=== PATIENT | male | born 1950 | race African-American/Black ===

== ENCOUNTER 2021-10-04 10:48 | Outpatient (CLI) | payer MEDICARE | END 2021-10-04 10:49 | disposition home or self-care (01) | LOC: CSHEKG 10:48 | PROVIDERS: ATTEND Internal Medicine Hematology & Oncology | DX: R00.9 Unspecified abnormalities of heart beat (principal) | CPT/HCPCS: 93005; 93010 ==

== ENCOUNTER 2021-10-24 07:52 | Outpatient (CLI) | payer MEDICARE | END 2021-10-24 07:53 | disposition home or self-care (01) | LOC: CSHCT 07:52 | PROVIDERS: ATTEND Internal Medicine Hematology & Oncology | DX: Z85.528 Personal history of other malignant neoplasm of kidney (principal); K68.9 Other disorders of retroperitoneum; Z90.5 Acquired absence of kidney; Z90.49 Acquired absence of other specified parts of digestive tract; I25.10 Atherosclerotic heart disease of native coronary artery without angina pectoris; I25.84 Coronary atherosclerosis due to calcified coronary lesion | CPT/HCPCS: 71260; 74177; 82565 ==

== ENCOUNTER 2023-06-18 20:32 | Emergency (ER) | payer MEDICARE ==
[2023-06-18] MEDS ORDERED: Calcium Gluc 4.6 MEQ/10 ML (100 MG/ML) ONE (21:16)
[2023-06-18 21:36] LABS: ALT (SGPT) 14 U/L (8-55); AST (SGOT) 21 U/L (5-34); Albumin 3.4 g/dL (3.4-4.8); Alkaline Phosphatase 55 U/L (40-110); Anion Gap 20 mmol/L (10-20); BUN (Urea Nitrogen) 73 mg/dL (8.4-25.7); Bilirubin, Total 0.5 mg/dL (0.2-1.2); Calc. Creatinine Clearance 0 mL/min (70-130); Calcium 8.6 mg/dL (7.8-10.44); Carbon Dioxide 11 mmol/L (23-31); Chloride 115 mmol/L (98-107); Estimated GFR 12; Globulin 3.1 g/dL (2.4-3.5); Glucose 163 mg/dL (83-110); Magnesium 1.6 mg/dL (1.6-2.6); Protein, Total 6.5 g/dL (5.8-8.1); Sodium 138 mmol/L (136-145)
[2023-06-18 21:41] LABS: #Monocytes 0.9 10x3/uL (0.0-1.1); #Neutrophils 6.5 10x3/uL (1.5-8.4); %Basophils 0.1 % (0.0-2.0); %Lymphocytes 16.6 % (18.0-47.0); %Monocytes 10.5 % (0.0-10.0); %Neutrophils 72.6 % (40.0-75.0); Hematocrit 42.8 % (38.8-50.0); Mean Corpuscular HGB CONC 32.7 g/dL (32.0-36.0); Mean Corpuscular Hemoglobin 31.7 pg (27.0-33.0); Mean Corpuscular Volume 96.8 fl (81.2-95.1); Mean Platelet Volume 12.6 fl (7.4-10.4); Platelet Count 87 10x3/uL (150-450); RBC Distribution Width 14.1 % (11.5-14.5); Red Blood Cell (RBC) Count 4.42 10x6/uL (4.32-5.72); White Blood Cell (WBC) Count 8.9 10x3/uL (3.5-10.5)
[2023-06-18 21:43] LABS: Troponin I 0.019 ng/mL (< 0.028)
[2023-06-18] MEDS ORDERED: Sodium Bicarb 50 MEQ/50 ML Abboject 8.4% SYRINGE ONE (21:50)
[2023-06-18] MEDS ORDERED: Calcium Chloride 1 GM/10 ML Abboject SYRINGE ONE (21:50)
[2023-06-18] MEDS ORDERED: Insulin Regular 300 UNITS/3 ML VIAL ONE (21:50)
[2023-06-18] MEDS ORDERED: Dextrose 50% Abboject 50 ML SYRINGE SLOW IVP SCH (22:00)
[2023-06-18] MEDS ORDERED: Sodium Bicarbonate 150 MEQ in Dextrose 5% in Water 1,000 ML IV SCH (22:30)
[2023-06-18 22:53] LABS: Platelet Adequacy Comment Appears Decreased; RBC Morph Comment Within Normal Limits
[2023-06-18] MEDS ORDERED: LOKELMA 5 GM PACKET PO SCH (23:30)
[2023-06-18 23:47] LABS: Potassium 5.8 mmol/L (3.5-5.1)
== END 2023-06-18 23:54 | disposition short-term general hospital (02) ==
LOC: CSHERS 20:32
DX: E87.5 Hyperkalemia (principal); N17.9 Acute kidney failure, unspecified; E11.9 Type 2 diabetes mellitus without complications; I10 Essential (primary) hypertension; Z87.891 Personal history of nicotine dependence
CPT/HCPCS: 71045; 80053; 82962; 83735; 83880; 84132; 84484; 85025; 93005; 94640 ×2; 94760; 96365; 96367; 96375; 96376; 99285; J0612; 36415; 36416; J1815; J7070; J7611; J7999

== ENCOUNTER 2024-01-02 07:38 | Outpatient (CLI) | payer MEDICARE | END 2024-01-02 07:39 | disposition home or self-care (01) | LOC: CSHULT 07:38 | PROVIDERS: ATTEND Internal Medicine Nephrology | DX: N17.9 Acute kidney failure, unspecified (principal); N40.0 Benign prostatic hyperplasia without lower urinary tract symptoms; N28.1 Cyst of kidney, acquired; R93.421 Abnormal radiologic findings on diagnostic imaging of right kidney | CPT/HCPCS: 76770 ==

== ENCOUNTER 2024-03-02 12:40 | Inpatient (IN) | payer MEDICARE ==
[2024-03-02 14:09] VITALS: BMI 23.9
[2024-03-02 14:32] LABS: Anion Gap 12 mmol/L (10-20); BUN (Urea Nitrogen) 46 mg/dL (8.4-25.7); Calc. Creatinine Clearance 18 mL/min (70-130); Carbon Dioxide 20 mmol/L (23-31); Chloride 113 mmol/L (98-107); Estimated GFR 15; Glucose 85 mg/dL (83-110); Potassium 5.4 mmol/L (3.5-5.1); Sodium 140 mmol/L (136-145)
[2024-03-02] MEDS ORDERED: Ondansetron PF 4 MG/2 ML Vial IVP PRN (14:32)
[2024-03-02] MEDS ORDERED: Ondansetron ODT 4 MG TAB PO PRN (14:32)
[2024-03-02] MEDS: Morphine 4 MG/ML VIAL SLOW IVP PRN (15:04)
[2024-03-02] MEDS: LOKELMA 10 GM PACKET PO SCH (15:06)
[2024-03-02] MEDS: Pantoprazole 40 MG VIAL IVP SCH (15:06)
[2024-03-02] MEDS: Magnesium 2 GM/50 ML(in water) 2 GM in Premix 1 BAG IVPB SCH (16:45)
[2024-03-02] MEDS ORDERED: HYDROcodone/Acetaminophen 10/325 mg Tablet PO PRN (16:55)
[2024-03-02] MEDS ORDERED: Guaifenesin DM 100-10/5 ML UDCUP PO PRN (16:55)
[2024-03-02] MEDS ORDERED: Acetaminophen 650 MG Suppository PR PRN (16:55)
[2024-03-02] MEDS ORDERED: Senokot S 8.6-50 MG TAB PO PRN (16:55)
[2024-03-02] MEDS ORDERED: Acetaminophen 325 MG TAB PO PRN (16:55)
[2024-03-02] MEDS ORDERED: Morphine 4 MG/ML VIAL SLOW IVP PRN (16:59)
[2024-03-02] MEDS ORDERED: Dexamethasone 0.5 MG/5 ML UDCUP FS PRN (17:00)
[2024-03-02] MEDS ORDERED: Sodium Chloride 0.9% 1,000 ML IV SCH (17:00)
[2024-03-02] MEDS: fentaNYL 50 mcg/mL 1 mL Vial SLOW IVP SCH (18:14)
[2024-03-02] MEDS: Furosemide 40 MG TAB PO SCH (18:14)
[2024-03-02] MEDS ORDERED: Sodium Bicarbonate Tab 325 MG TAB PO SCH (21:00)
[2024-03-02] MEDS: Sodium Bicarbonate Tab 325 MG TAB PO SCH (21:20)
[2024-03-02] MEDS: Apixaban 5 MG TAB PO SCH (21:20)
[2024-03-02] MEDS: Carvedilol 25 MG TAB PO SCH (21:20)
[2024-03-02] MEDS: HYDROcodone/Acetaminophen 10/325 mg Tablet PO PRN (21:20)
[2024-03-02] MEDS: Famotidine/PF 20 mg/2ml Vial SLOW IVP SCH (21:20)
[2024-03-02] MEDS: hydrALAZINE 25 MG TAB PO SCH (22:21)
[2024-03-02 23:30] LABS: Creatinine, Urine 75.85 mg/dL (63-166)
[2024-03-03] MEDS: Levothyroxine Sodium 50 MCG TAB PO SCH (05:21)
[2024-03-03 07:19] LABS: #Basophils 0.03 10x3/uL (0.0-0.2); #Eosinphils 0.07 10x3/uL (0.0-0.5); #Monocytes 0.76 10x3/uL (0.0-1.1); #Neutrophils 4.38 10x3/uL (1.5-8.4); %Basophils 0.4 % (0.0-2.0); %Lymphocytes 22.1 % (18.0-47.0); %Monocytes 11.3 % (0.0-10.0); %Neutrophils 64.9 % (40.0-75.0); Hematocrit 40.4 % (38.8-50.0); Hemoglobin 12.8 g/dL (13.5-17.5); Mean Corpuscular HGB CONC 31.7 g/dL (32.0-36.0); Mean Corpuscular Hemoglobin 31.3 pg (27.0-33.0); Mean Corpuscular Volume 98.8 fl (81.2-95.1); Platelet Count 115 10x3/uL (150-450); RBC Distribution Width 17.8 % (11.5-14.5); Red Blood Cell (RBC) Count 4.09 10x6/uL (4.32-5.72); White Blood Cell (WBC) Count 6.8 10x3/uL (3.5-10.5)
[2024-03-03 07:30] LABS: Anion Gap 17 mmol/L (10-20); BUN (Urea Nitrogen) 46 mg/dL (8.4-25.7); Calc. Creatinine Clearance 16 mL/min (70-130); Calcium 9.1 mg/dL (7.8-10.44); Carbon Dioxide 17 mmol/L (23-31); Chloride 111 mmol/L (98-107); Estimated GFR 13; Glucose 100 mg/dL (83-110); Potassium 5.4 mmol/L (3.5-5.1); Sodium 140 mmol/L (136-145)
[2024-03-03 08:29] LABS: Platelet Adequacy Comment Appears Decreased
[2024-03-03] MEDS: Tamsulosin HCl 0.4 MG CAP PO SCH (09:00)
[2024-03-03] MEDS ORDERED: LENVATINIB MESYLATE 10 MG PO SCH (09:00)
[2024-03-03] MEDS: Amlodipine 10 MG TAB PO SCH (09:01)
[2024-03-03] MEDS: Furosemide 40 MG TAB PO SCH (09:01)
[2024-03-03] MEDS: Pantoprazole 40 MG VIAL IVP SCH (09:02)
[2024-03-03] MEDS: Rosuvastatin 10 MG TAB PO SCH (09:02)
[2024-03-03 17:12] LABS: Magnesium 2.4 mg/dL (1.6-2.6)
[2024-03-04 05:24] LABS: #Basophils 0.01 10x3/uL (0.0-0.2); #Eosinphils 0.07 10x3/uL (0.0-0.5); #Monocytes 0.96 10x3/uL (0.0-1.1); %Basophils 0.1 % (0.0-2.0); %Eosinophils 0.9 % (0.0-6.0); %Lymphocytes 20.3 % (18.0-47.0); %Monocytes 12.6 % (0.0-10.0); %Neutrophils 65.8 % (40.0-75.0); Anion Gap 16 mmol/L (10-20); BUN (Urea Nitrogen) 50 mg/dL (8.4-25.7); Calc. Creatinine Clearance 16 mL/min (70-130); Calcium 8.8 mg/dL (7.8-10.44); Carbon Dioxide 20 mmol/L (23-31); Chloride 105 mmol/L (98-107); Estimated GFR 13; Glucose 109 mg/dL (83-110); Hematocrit 40.9 % (38.8-50.0); Mean Corpuscular HGB CONC 31.8 g/dL (32.0-36.0); Mean Corpuscular Hemoglobin 31.6 pg (27.0-33.0); Mean Corpuscular Volume 99.3 fl (81.2-95.1); Mean Platelet Volume 11.4 fl (7.4-10.4); Platelet Count 114 10x3/uL (150-450); Potassium 4.7 mmol/L (3.5-5.1); RBC Distribution Width 17.3 % (11.5-14.5); Red Blood Cell (RBC) Count 4.12 10x6/uL (4.32-5.72); Sodium 136 mmol/L (136-145); White Blood Cell (WBC) Count 7.6 10x3/uL (3.5-10.5)
[2024-03-04 08:59] VITALS: TEMP 98.6
[2024-03-04 10:51] VITALS: BP 179/83
[2024-03-05] MEDS ORDERED: Furosemide 20 MG TAB PO SCH (09:00)
== END 2024-03-04 16:35 | disposition home or self-care (01) | DRG 640 ==
LOC: CSHTELE 12:40
PROVIDERS: ADMIT Emergency Medicine; ATTEND Internal Medicine
DX: E87.5 Hyperkalemia (principal); J96.90 Respiratory failure, unspecified, unspecified whether with hypoxia or hypercapnia; C65.9 Malignant neoplasm of unspecified renal pelvis; J91.0 Malignant pleural effusion; N18.5 Chronic kidney disease, stage 5; I12.0 Hypertensive chronic kidney disease with stage 5 chronic kidney disease or end stage renal disease; E87.20 Acidosis, unspecified; Z85.53 Personal history of malignant neoplasm of renal pelvis; Z79.01 Long term (current) use of anticoagulants; Z90.49 Acquired absence of other specified parts of digestive tract; Z87.891 Personal history of nicotine dependence; Z79.890 Hormone replacement therapy; Z79.899 Other long term (current) drug therapy
CPT/HCPCS: 36415; 71045; 80048; 82570; 83735; 84156; 85025; 94760; C9113; J2270; J3010; J3475; S0028